=== PATIENT | male | born 1975 | race African-American/Black ===

== ENCOUNTER 2016-12-06 15:04 | Emergency (ER) | payer SELFPAY ==
[2016-12-06 15:15] VITALS: BP 143/92
[2016-12-06] MEDS ORDERED: ONDANSETRON 4 MG TAB.RAPDIS PO ONE (15:26)
[2016-12-06] MEDS ORDERED: ONDANSETRON 4 MG TAB.RAPDIS ONE (15:27)
--- NOTE | 2016-12-06 15:35 | ERNOTE ---
Abdominal HPI - General Time Seen by Provider: 12/06/16 15:08 Source: patient Exam Limitations: no limitations - Immun/Allergies/Home Medications Allergies/Adverse Reactions: Allergies No Known Allergies Allergy (Verified 12/06/16 15:15) Home Medications: HOME MEDICATIONS Ondansetron HCl [Zofran] 4 mg PO Q4H PRN #10 tablet 12/06/16 [Last Taken Unknown ] - History of Present Illness Narrative: Three days ago patient was eating a sub from [employer] and started to get nauseated and vomited. He last vomited two days ago, still has some nausea, and has been able to keep liquids and some foods down. His initial abdominal pain has resolved. He also started with diarrhea about 3-4 times a day, today just once early this morning. 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 Date (Duration): 12/03/16 Time (Timing): 15:00 Prior Abdominal Problems: Present: none Prior Treatment: Absent: recently seen, currently on antibiotics Review of Systems - Review of Systems Constitutional: Absent: recent illness, fever, chills ENT: Absent: nose congestion, sore throat Respiratory: Absent: shortness of breath, cough Cardiology: Absent: chest pain Gastrointestinal/Abdominal: Present: See HPI Genitourinary: Present: no symptoms reported Musculoskeletal: Absent: muscle pain Skin: Absent: rash Neurological: Absent: headache - Patient's Past Medical History Patient History - Medical: No pertinent hx Patient History - Cardiac/Respiratory: No pertinent hx Patient History - Cancer: No Hx of Cancer Patient History - Surgical Procedures: Other - umbilical hernia Patient History - Other: None - Social History Smoking Status: Current every day smoker Alcohol Use: heavy - 3-4 beer daily Drug Use: none - Immunizations Immunizations Up to Date: Yes Hx Pneumococcal Vaccination: No History of Influenza Vaccine: Yes Physical Exam - Physical Exam General Appearance: Present: wd/wn, alert, no apparent distress Ears, Nose, Throat: Present: normal ENT inspection Neck: Absent: lymphadenopathy (R), lymphadenopathy (L) Respiratory: Present: no respiratory distress, normal breath sounds, no accessory muscle use, lungs clear Cardiovascular/Chest: Present: regular rate, rhythm Gastrointestinal/Abdominal: Present: normal bowel sounds, nontender, nondistended, soft Neurological Exam: Present: alert, oriented, normal mood/affect Skin Exam: Present: normal color, warm/dry ED Progress - Vital Signs Patient's Vital Signs:: I have reviewed the patient's vital signs. Departure - Departure Clinical Impression: Gastroenteritis due to food toxin Disposition: Home self-care Condition: Good Instructions: Food Poisoning, [id number], Form - Excuse from Work, School, or Physical Activity Referrals: Jalil Mars DO [Primary Care Provider] - Prescriptions: Ondansetron HCl [Zofran] 4 mg PO Q4H PRN #10 tablet PRN Reason: Nausea
== END 2016-12-06 15:33 | disposition home or self-care (01) ==
LOC: ER 15:04
DX: K52.1 Toxic gastroenteritis and colitis (principal); Y92.524 Gas station as the place of occurrence of the external cause